=== PATIENT | male | born 1995 | race Hispanic/Latino ===

== ENCOUNTER 2023-07-05 13:21 | Emergency (ER) | payer BC, SELFPAY ==
[2023-07-05 13:23] VITALS: BP 131/85
[2023-07-05 13:36] LABS: % Basophils 0.8 % (0-2); % Eosinophils 0.5 % (0-6); % Immature Granulocytes 0.2 % (0-0.5); % Lymphocytes 33.2 % (20.5-51.1); % Neutrophils 59.3 % (42.2-75.2); Absolute Basophils 0.1 10^3/uL (0-0.2); Absolute Lymphocytes 2.1 10^3/uL (1.2-3.4); Absolute Monocytes 0.4 10^3/uL (0.1-0.6); Absolute Neutrophils 3.7 10^3/uL (1.4-6.5); Hematocrit 42.6 % (39.0-52.0); Hemoglobin 15.9 g/dL (13.0-18.0); Mean Corp Hgb Conc. 37.3 g/dL (33.0-37.0); Mean Corpuscular Hgb 30.1 pg (27.0-31.0); Mean Corpuscular Volume 80.5 fL (80.0-94.0); Mean Platelet Volume 11.3 fL (7.4-10.4); Nucleated Red Blood Cells % 0 % (-); Platelet Count 208 10^3/uL (130-400); Red Blood Cell Count 5.29 10^6/uL (4.70-6.10); Red Cell Dist. Width 12.3 % (11.5-14.5); White Blood Cell Count 6.2 10^3/uL (4.8-10.8)
[2023-07-05 13:55] LABS: ALT (SGPT) 66 U/L (0-50); AST (SGOT) 29 U/L (17-59); Albumin 4.9 g/dl (3.5-5.0); Alkaline Phosphatase 111 U/L (38-126); Blood Urea Nitrogen 11 mg/dl (9-20); Calcium 9.3 mg/dl (8.4-10.2); Carbon Dioxide 24 mmol/L (22-30); Chloride 105 mmol/L (98-107); Glucose 107 mg/dl (70-99); Potassium 3.5 mmol/L (3.5-5.1); Sodium 138 mmol/L (135-145); Total Bilirubin 1.9 mg/dl (0.2-1.3); Total Protein 8.3 g/dl (6.3-8.2); eGFR > 60.00
[2023-07-05 14:22] LABS: Troponin I < 0.012 ng/ml
[2023-07-05 14:40] VITALS: BP 122/66
--- NOTE | 2023-07-05 14:49 | ED.GENMED ---
History of Present Illness
General
Chief Complaint: Breathing Problem
Source: patient
Time Seen by Provider: 07/05/23 14:42
Travel History
Have you had any contact with someone who has COVID-19?: No
Do you have any symptoms of coronavirus? Fever > 100 degrees, chills, cough, shortness of breath, sore throat, loss of taste or smell, muscle aches, or headache?: No
History of Present Illness
History of Present Illness:
28-year-old male presents to the emergency room complaining of difficulty taking deep breath through his nose. He also feels like he just cannot get 'a good breath'. At times he feels like his heart is going fast. He also states that when he eats
he feels full rapidly. He denies fever, chills, cough. He denies any nausea or vomiting. He denies diarrhea. He does not believe he has had seasonal allergies in the past.
Past History
Past History
ED Past Medical History: None; Negative HTN or Hypercholesterolemia
ED Past Surgical History: Appendectomy
Social History
Tobacco: Non-smoker
Alcohol: Occasional
Personal: Single (Farhad law marragchristine for 7 years)
Living: with family
Phy Exam
Physical Exam
Physical Exam:
General: Awake, Alert, Oriented X3. No acute distress.
Vitals: unremarkable
Head: Atraumatic
Eyes: Pupils equal, EOMI
Throat: Airway intact, no exudates
Neck: Trachea midline
Lungs: Clear and equal b/l
Heart: Regular rate, no murmurs
Abd: Soft, Nontender, No pulsatile mass
Neuro: Nonfocal
Skin: Warm, dry, no rash
Extremities: pulses equal b/l, no edema
Course
Orders/Labs/Results
Orders:
Orders
07/05/23 13:25
Electrocardiogram (*1) Urgent
Reason for Study: Shortness of Breath
CR Chest - 2 Views Urgent
Comment:
Reason For Exam: SOB
07/05/23 13:26
EKG- Treatment ONCE
07/05/23 13:30
Complete Blood Count/With Diff Urgent
Comprehensive Metabolic Panel Urgent
PTT Urgent
Troponin I Urgent
Abnormal Lab Results
07/05/23
13:30
MCHC 37.3 H g/dL
(33.0-37.0)
MPV 11.3 H fL
(7.4-10.4)
Glucose 107 H mg/dl
(70-99)
Total Bilirubin 1.9 H mg/dl
(0.2-1.3)
ALT 66 H U/L
(0-50)
Total Protein 8.3 H g/dl
(6.3-8.2)
07/05/23 13:30
07/05/23 13:30
Vital Signs
Initial and Last Documented VS:
Initial Vital Signs
Temp Pulse Resp BP Pulse Ox
98.3 F 74 18 131/85 99
07/05/23 13:23 07/05/23 13:23 07/05/23 13:23 07/05/23 13:23 07/05/23 13:23
Last Documented Vital Signs
Temp Pulse Resp BP Pulse Ox
98.3 F 68 17 116/72 99
07/05/23 13:23 07/05/23 15:30 07/05/23 15:30 07/05/23 15:01 07/05/23 13:23
MDM/Problems Addressed
Differential Diagnosis Includes:
Seasonal allergies, pneumothorax, pneumonia
MDM/Problems Addressed:
Work appears unremarkable. No evidence of an unstable process. Patient stable for discharge home and outpatient follow-up.
*EKG
Interpreted by ED Provider?: Yes
Interpretation: normal
Heart Rate: 85
Rate: normal
Rhythm: sinus
[place]: normal axis
Interval: normal interval
QRS Pattern: normal QRS
Ischemia: no ischemia
*Automotive Technician Interpretation
Rate: normal
Interpretation: normal
Heart Rate: 85
Rhythm: sinus
*Critical Care Note
Total Time (30-74mins, 75-104mins- exclusive of procedures): Not Applicable
ED Attending Note
-
Portions of this chart may have been created with voice recognition software.� Occasional wrong word or��sound alike� substitutions may have occurred due to the inherent limitations of voice recognition software.
Discharge Plan
Departure
Patient Disposition: Home (Routine Discharge)
Date of Disposition: 07/05/23
Time of Disposition: 16:20
Patient with high blood pressure during this ER visit?: No
Condition: Good
Discharge Problem:
Heart palpitations
Instructions: Palpitations ED
Prescriptions:
No Action
levofloxacin 500 mg tablet
500 mg PO DAILY 9 Days Qty: 9 0RF
metronidazole 500 mg tablet
500 mg PO TID Qty: 29 0RF
Referrals:
Nico Alejandro, DO [Family Provider] -
Activity Restrictions/Additional Instructions:
You work up here is normal. Please follow up with your primary care doctor.
Interventions
Interventions:
*Risk Screen - Suicide Last Done: 07/05/23 13:23
*General Assessment Last Done: 07/05/23 13:23
*Nursing Disposition Last Done: 07/05/23 16:40
ED- Cardiac Assessment Last Done: 07/05/23 15:55
ED- Pulmonary Assessment Last Done: 07/05/23 15:55
Discharge Date and Time
Discharge Date/Time: 07/05/23 16:42
[2023-07-05 15:01] VITALS: BP 116/72
[2023-07-05 15:57] VITALS: BMI 27.5
== END 2023-07-05 16:42 | disposition home or self-care (01) ==
LOC: EMR 13:21
PROVIDERS: Emergency Medicine; EMERGENCY PHYSICIAN Emergency Medicine; FAMILY PHYSICIAN Internal Medicine
DX: R00.2 Palpitations (principal); R06.02 Shortness of breath
CPT/HCPCS: 99285; 71046; 80053; 84484; 85025; 85730; 93005

== ENCOUNTER → 2023-11-27 06:32 | Day surgery (SDC) | payer BC, SELFPAY | LOC: GI 06:32 | PROVIDERS: ATTENDING PHYSICIAN Internal Medicine | DX: K57.30 Diverticulosis of large intestine without perforation or abscess without bleeding (principal); K57.32 Diverticulitis of large intestine without perforation or abscess without bleeding | CPT/HCPCS: 45378 ==